=== PATIENT | female | born 1970 | race African-American/Black ===

== ENCOUNTER 2017-07-24 16:13 | Emergency (ER) | payer OTHER ==
[~2017-07-24] VITALS: Ht 165.1 cm; Wt 100.0 kg
[~2017-07-24 16:13] MED LIST: LISI10; LORTA5 PO; MECL-62 PO; OMEP20CA5 PO; PROM25SU8 PO; Z.0.BCPILL
[2017-07-24 16:14] VITALS: BP 137/73; PULSE 83; RESP 15; TEMP 98.4; O2SAT 98
--- NOTE | 2017-07-24 16:25 | PD ---
Physical Exam Time Seen by Provider: 16:23 Narrative 47yo F c/o low back pain x 1 week with worsening. Radiates to buttocks on both sides. Unknown injury. Denies urinary symptoms. Ambulatory in triage. Patient seen in triage. VS reviewed. Patient awaiting bed placement. Data Data Last Documented VS Vital Signs Date Time Temp Pulse Resp B/P (MAP) Pulse Ox O2 Delivery O2 Flow Rate FiO2 07/24/17 16:14 98.4 83 15 137/73 (94) 98 MDM Supervised Visit with LYNDON: Patricia Johnston Jul 24, 2017 16:25
--- NOTE | 2017-07-24 16:34 | PD ---
HPI . back and leg pain Chief Complaint: Back/ Neck Pain or Injury Time Seen by Provider: 16:33 Travel History International Travel<30 days: Yes Contact w/Intl Traveler<30days: [place] Traveled to: [place] Traveled to known affect area: No History of Present Illness HPI 47- year old female with a PMHx of Cellulitis and HTN presents to the ED complaining of constant bilateral lower back pain radiating down her buttocks. The patient reports that she had the pain for the past week, but has been worsening. She reports that the pain is currently at a 5-6/10, but is worsened with movement such as putting pants on. She reports she has not tried any pain medication. She denies any nausea, vomiting, diarrhea, fevers, chills, or difficulty urinating. She denies any bowel or bladder dysfunction. [facility] Past Medical History Diminished Hearing: No Hypertension: Yes Reproductive: Yes ([employer]) : 3 Para: 3 Past Surgical History Section: Yes Gynecologic Surgery: Yes ([facility]) Social History Alcohol Use: Yes (RARE) Tobacco Use: No Substance Use: No Allergies-Medications (Allergen,Severity, Reaction): Coded Allergies: No Known Allergies (Verified , 07/24/17) Reported Meds & Prescriptions Reported Meds & Active Scripts Active Reported Clonidine (Clonidine HCl) 0.1 Mg Tab 0.1 Mg PO BID Bactrim DS (Sulfamethoxazole-Trimethoprim) 800-160 Mg Tab 1 Tab PO BID Lomaira (Phentermine HCl) 8 Mg Tab 37.5 Mg PO DAILY Amlodipine (Amlodipine Besylate) 10 Mg Tab 10 Mg PO DAILY Mononessa (Norgestimate-Ethinyl Estradiol) 0.25-35 Mg-Mcg Tab 1 Tab PO DAILY Review of Systems General / Constitutional: No: Fever, Chills, Weight Gain, Weight Loss, Other Eyes: No: Diploplia, Blurred Vision, Photophobia, Drainage, Redness, Foreign Body Sensation, Pain, Tearing, Blind Spots, Visual changes, Blindness, Other HENT: No: Headaches, Vertigo, Lightheadedness, Sore Throat, Rhinitis, Rhinorrhea, Congestion, Nosebleed, Neck Stiffness, Neck Pain, Masses, Gingival Bleeding, Dental Difficulties, Ear Discharge, Earache, Other Cardiovascular: No: Chest Pain or Discomfort, Palpitations, Irregular Rhythm, Tachycardia, Diaphoresis, Syncope, Dyspnea on exertion, Varicosities, Edema, Cyanosis, Varicosities, Phlebitis, Claudication, Other Respiratory: No: Cough, Shortness of Breath, Wheezing, Sneezing, Orthopnea, Hemoptysis, Stridor, Night Sweats, Pleuritic Pain, Other Gastrointestinal: No: Nausea, Vomiting, Diarrhea, Abdominal Pain, Hematemesis, Hematochezia, Constipation, Changes in Bowel Habits, Indigestion, Dysphagia, Loss of Appetite, Other Genitourinary: No: Urgency, Frequency, Dysuria, Nocturia, Hematuria, Decreased Urinary Output, Oliguria, Hesitancy, Dribbling, Incontinence, Pelvic Pain, Flank Pain, Dyspareunia, Discharge, Dysmenorrhea, Menorrhagia, Metorrhagia, Vaginal Bleeding, Other Musculoskeletal: Positive: Pain (bilateral lower back), No: Myalgias, Arthralgias, Limited ROM, Weakness, Cramping, Edema, Atrophy, Other Skin: No Rash, No Itching, No Dryness, No Lumps, No Hives, No Change in Pigmentation, No Change in nails, No Alopecia, No Lesions, No Breast Lumps, No Breast Tenderness, No Breast Swelling, No Other Neurologic: No: Weakness, Dizziness, Syncope, Focal Abnormalities, Coordination Problem, Tremor, Ataxia, Headache, Change in Mentation, Slurred Speech, Paresthesia, Incontinence, Seizures, Sensory Disturbance, Other Psychiatric: No: Anxiety, Depression, Suicidal Ideations, Disorder of Thought, Mood Disorder, Substance Abuse, Homicidal Ideation, Other Endocrine: No: Heat Intolerance, Cold Intolerance, Polyuria, Polydipsia, Other Hematologic/Lymphatic: No: Easy Bruising, Lymph Node Enlargement, Other Physical Exam Narrative GENERAL: AAO x 3. NAD. SKIN: Warm and dry. HEAD: Atraumatic. Normocephalic. EYES: Pupils equal and round. No scleral icterus. No injection or drainage. ENT: No nasal bleeding or discharge. Mucous membranes pink and moist. NECK: Trachea midline. No JVD. CARDIOVASCULAR: Regular rate and rhythm. No S3, S4, or murmurs. RESPIRATORY: No accessory muscle use. Clear to auscultation. Breath sounds equal bilaterally. No wheezes, rales, or rhonchi. GASTROINTESTINAL: Visual inspection appears normal. MUSCULOSKELETAL: Positive SLR on the right. Extremities without clubbing, cyanosis, or edema. No obvious deformities. NEUROLOGICAL: Awake and alert. No obvious cranial nerve deficits. Motor grossly within normal limits. Five out of 5 muscle strength in the arms and legs. Normal speech. PSYCHIATRIC: Appropriate mood and affect; insight and judgment normal. Data Data Last Documented VS Vital Signs Date Time Temp Pulse Resp B/P (MAP) Pulse Ox O2 Delivery O2 Flow Rate FiO2 07/24/17 16:14 98.4 83 15 137/73 (94) 98 Orders Orders Ketorolac Inj (Toradol Inj) (07/24/17 16:45) Orphenadrine Inj (Norflex Inj) (07/24/17 16:45) [facility] Medical Decision Making Medical Screen Exam Complete: Yes Emergency Medical Condition: Yes Medical Record Reviewed: Yes Differential Diagnosis Sciatica, Musculoskeletal injury Narrative Course 47 yr old female here with c/o back pain radiating to her legs. She appears to have sciatica. Toradol and Norflex here. Advised OTC Tylenol and Motrin PRN. F/U with PCP Diagnosis Primary Impression: Sciatica Qualified Codes: M54.31 - Sciatica, right side Patient Instructions: General Instructions Additional Instructions: Use [id number] ibuprofen or Tylenol as needed for pain. Follow-up with your primary care provider. Med/Other Pt SpecificInfo: No Change to Meds Disposition: 01 DISCHARGE HOME Condition: Stable Kim Mehta Jul 24, 2017 16:34
[2017-07-24] MEDS ORDERED: KETOROLAC TROMETHAMINE 60 MG/2 ML (IM) VIAL IM ONE (16:45)
[2017-07-24] MEDS ORDERED: ORPHENADRINE INJ 60 MG/2 ML AMP IM ONE (16:45)
[2017-07-24] MEDS ORDERED: CLON0.1T PO (16:48)
[2017-07-24] MEDS ORDERED: AMLO10TA2 PO (16:48)
[2017-07-24] MEDS ORDERED: MONOTAB PO (16:48)
[2017-07-24] MEDS ORDERED: PHEN-556 PO (16:48)
[2017-07-24] MEDS ORDERED: BACT800T5 PO (16:48)
== END 2017-07-24 17:30 | disposition home or self-care (01) ==
LOC: NEPK 16:13
DX: M54.30 Sciatica, unspecified side (principal); I10 Essential (primary) hypertension; Z79.899 Other long term (current) drug therapy
CPT/HCPCS: 96372; 99284; J1885; J2360